=== PATIENT | female | born 1990 | race Caucasian/White ===

== ENCOUNTER 2017-04-16 12:45 | Emergency (ER) | payer SELFPAY ==
[2017-04-16 14:55] LABS: Urine Bacteria Absent (Absent); Urine Bilirubin Negative (Negative); Urine Glucose Negative (Negative); Urine Nitrite Negative (Negative)
[2017-04-16 15:13] LABS: Hematocrit 46 % (35-47); Hemoglobin 15.7 g/dl (12.0-16.0); Mean Corpuscular HGB Conc 34 g/dl (31-36); Mean Corpuscular Hemoglobin 33 pg (27-31); Mean Corpuscular Volume 96 fL (80-97); Mean Platelet Volume 8 um3 (7.4-10.4); Red Blood Count 4.83 10^6/ul (4.0-5.4); Red Cell Distribution Width 14 % (10.5-15); White Blood Count 9.8 10^3/ul (3.5-10.8)
[2017-04-16 15:22] LABS: ALT 12 U/L (7-52); AST 15 U/L (13-39); Albumin 4.2 g/dL (3.2-5.2); Alkaline Phosphatase 104 U/L (34-104); Anion Gap 6 mmol/L (2-11); BUN/Creatinine Ratio 10.3 (8-20); Blood Urea Nitrogen 6 mg/dL (6-24); CO2 Carbon Dioxide 24 mmol/L (22-32); Calcium 9.3 mg/dL (8.6-10.3); Chloride 105 mmol/L (101-111); EGFR African American 160.4 (>60); EGFR Non-African American 124.7 (>60); Glucose 82 mg/dL (70-100); Potassium 3.9 mmol/L (3.5-5.0); Sodium 135 mmol/L (133-145); Total Protein 7.2 g/dL (6.4-8.9)
--- NOTE | 2017-04-16 15:39 | ED ---
Cyndy Castle Auryana, scribed for Genet Novak MD on 04/16/17 at 1308 . GI/ HPI - HPI Summary HPI Summary: 27 year old female presents with dysmenorrhea and suspicion of possible . Patient reports that she missed her menstrual cycle for two months and is now starting to have intermittent spotting and heavy flow. She also reports sharp intermittent abdominal pain with "fluttering" in abdomen, low back pain, and increased fatigue. She denies any pain with urination. She states that she has taken multiple tests - the first was faintly positive but has had multiple negative tests after that. . PMHx is significant for decreased WBC count - reports possible leukemia diagnosis with leukemia cells present on previous blood work. FHx is significant for cancers. SH is significant for tobacco use but no alcohol or recreational drug use. Patient has no PCP since she just moved to the area. - History of Current Complaint Chief Complaint: EDOBProblems Time Seen by Provider: 04/16/17 13:07 Stated Complaint: VAGINAL BLEEDING,ABD & BACK PAIN Hx Obtained From: Patient Onset/Duration: Started Days Ago, Still Present Timing: Intermittent Severity: Mild Current Severity: Moderate Pain Intensity: 7 Location of Pain: Diffuse Pain Characteristics: Sharp Associated Signs and Symptoms: Positive: Back Pain - low, Abdominal Pain - sharp intermittent. Negative: UTI Symptoms Additional Signs & Symptoms: Positive: Vaginal Bleeding - intermittent spotting to heavy flow, Positive Test - faintly positive test but reports multiple negative tests afterwards, - 4, Para - 4, Menses Irregular - Allergy/Home Medications Allergies/Adverse Reactions: Allergies Allergy/AdvReac Type Severity Reaction Status Date / Time Penicillins Allergy Unknown Unknown Verified 03/17/14 10:56 Reaction Details PMH/Surg Hx/FS Hx/Imm Hx Endocrine/Hematology History: Reports: Other Endocrine/Hematological Disorders - possible leukemia Denies: Hx Anticoagulant Therapy, Hx Diabetes - gestational diabetes with prior , Hx Thyroid Disease Cardiovascular History: Denies: Hx Hypertension, Hx Pacemaker/ICD Respiratory History: Reports: Hx Asthma Denies: Hx Chronic Obstructive Pulmonary Disease (COPD) GI History: Denies: Hx Ulcer History: Denies: Hx Renal Disease Neurological History: Denies: Hx Dementia, Hx Seizures Psychiatric History: Denies: Hx Substance Abuse Infectious Disease History: No Infectious Disease History: Denies: Hx Hepatitis, Hx Human Immunodeficiency Virus (HIV), Traveled Outside the [place] in Last 30 Days - Family History Known Family History: Positive: Other - cancer - Social History Lives: With Family - with friend Alcohol Use: Occasionally Substance Use Type: Reports: None Type: Cigarettes Amount Used/How Often: 1/2ppd Review of Systems Constitutional: Negative Negative: Fever Eyes: Negative ENT: Negative Cardiovascular: Negative Respiratory: Negative Positive: Abdominal Pain Positive: other - vaginal bleeding . Negative: pain Positive: Other - low back pain Skin: Negative Neurological: Negative Psychological: Normal All Other Systems Reviewed And Are Negative: Yes Physical Exam - Summary Physical Exam Summary: General: Well appearing, no pain distress Skin: Warm, Skin Color Reflects Adequate Perfusion, Dry Eyes: EOMI, ALISTAIR ENT: Pharynx normal, TMs normal Neck: Supple, nontender Respiratory: CTA, breath sounds present, no rhonchi, no wheezes, no rales Cardiovascular: RRR, no murmur, no rub, no gallop Abdomen: Soft, nontender, Non-distended, no guarding, no rebound Bowel: Present Musculoskeletal: MAURICE, No edema Neuro: Sensory/motor intact, A&Ox3, CN intact 2-12 Psych: Affect/mood appropriate Pelvic exam - slight amount of blood but otherwise normal. Triage Information Reviewed: Yes Vital Signs On Initial Exam: Initial Vitals Temp Pulse Resp BP Pulse Ox 98.1 F 79 18 121/74 99 04/16/17 12:49 04/16/17 12:49 04/16/17 12:49 04/16/17 12:49 04/16/17 12:49 Vital Signs Reviewed: Yes Diagnostics - Vital Signs Vital Signs Temp Pulse Resp BP Pulse Ox 04/16/17 12:50 98.1 F 88 18 121/74 99 04/16/17 12:49 98.1 F 79 18 121/74 99 - Laboratory Lab Results: Lab Results 04/16/17 04/16/17 04/16/17 Range/Units 14:15 14:56 14:56 WBC 9.8 (3.5-10.8) 10^3/ul RBC 4.83 (4.0-5.4) 10^6/ul Hgb 15.7 (12.0-16.0) g/dl Hct 46 (35-47) % MCV 96 (80-97) fL MCH 33 H (27-31) pg MCHC 34 (31-36) g/dl RDW 14 (10.5-15) % Plt Count 306 (150-450) 10^3/ul MPV 8 (7.4-10.4) um3 Neut % (Auto) 61.2 (38-83) % Lymph % (Auto) 27.3 (25-47) % Reeves % (Auto) 9.0 (1-9) % Eos % (Auto) 1.7 (0-6) % Baso % (Auto) 0.8 (0-2) % Absolute Neuts (auto) 6.0 (1.5-7.7) 10^3/ul Absolute Lymphs (auto) 2.7 (1.0-4.8) 10^3/ul Absolute Monos (auto) 0.9 H (0-0.8) 10^3/ul Absolute Eos (auto) 0.2 (0-0.6) 10^3/ul Absolute Basos (auto) 0.1 (0-0.2) 10^3/ul Absolute Nucleated RBC 0.01 10^3/ul Nucleated RBC % 0.1 Sodium 135 (133-145) mmol/L Potassium 3.9 (3.5-5.0) mmol/L Chloride 105 (101-111) mmol/L Carbon Dioxide 24 (22-32) mmol/L Anion Gap 6 (2-11) mmol/L BUN 6 (6-24) mg/dL Creatinine 0.58 (0.51-0.95) mg/dL Est GFR ( Amer) 160.4 (>60) Est GFR (Non-Af Amer) 124.7 (>60) BUN/Creatinine Ratio 10.3 (8-20) Glucose 82 (70-100) mg/dL Calcium 9.3 (8.6-10.3) mg/dL Total Bilirubin 0.30 (0.2-1.0) mg/dL AST 15 (13-39) U/L ALT 12 (7-52) U/L Alkaline Phosphatase 104 (34-104) U/L Total Protein 7.2 (6.4-8.9) g/dL Albumin 4.2 (3.2-5.2) g/dL Globulin 3.0 (2-4) g/dL Albumin/Globulin Ratio 1.4 (1-3) Beta HCG, Quant < 0.60 mIU/mL Urine Color Straw Urine Appearance Clear Urine pH 6.0 (5-9) Ur Specific [place] 1.004 L (1.010-1.030) Urine Protein Negative (Negative) Urine Ketones Negative (Negative) Urine Blood 1+ H (Negative) Urine Nitrate Negative (Negative) Urine Bilirubin Negative (Negative) Urine Urobilinogen Negative (Negative) Ur Leukocyte Esterase Negative (Negative) Urine WBC (Auto) Absent (Absent) Urine RBC (Auto) Trace(0-2/hpf) (Absent) Ur Squamous Epith Cells Present H (Absent) Urine Bacteria Absent (Absent) Urine Glucose Negative (Negative) Result Diagrams: 04/16/17 14:56 04/16/17 14:56 Lab Statement: Any lab studies that have been ordered have been reviewed, and results considered in the medical decision making process. GIGU Course/Dx - Course Course Of Treatment: 27 yo female with vaginal bleeding and some cramping intermittently after not getting period for a few months, pelvic exam was normal no focal tenderness mild amt of blood, neg hcg ok to go home with followup - Diagnoses Provider Diagnoses: Pelvic pain Discharge - Discharge Plan Condition: Stable Disposition: HOME Prescriptions: Naproxen TAB* [Naprosyn 375 mg TAB*] 375 mg PO BID #14 tab Patient Education Materials: Dysfunctional Uterine Bleeding (ED), Pelvic Pain in Women (ED) Referrals: No Primary Care Phys,NOPCP [Primary Care Provider] - [facility] [Outside] The documentation as recorded by the Cyndy li Auryana accurately reflects the service I personally performed and the decisions made by me, Genet Novak MD.
[2017-04-16 15:57] VITALS: BP 106/70
== END 2017-04-16 15:55 | disposition home or self-care (01) ==
LOC: ED 12:45
DX: R10.2 Pelvic and perineal pain (principal); Z88.0 Allergy status to penicillin; F17.210 Nicotine dependence, cigarettes, uncomplicated
CPT/HCPCS: 36415; 80053; 81003; 81015; 84702; 85025; 99283